=== PATIENT | female | born 1980 | race Hispanic/Latino ===

== ENCOUNTER 2021-06-10 20:37 | Inpatient (IN) | payer SELFPAY ==
--- NOTE | 2021-06-10 21:36 | RAD REPORT ---
EXAM DESCRIPTION: CT - Ct Stroke Brain Wo Cont - 06/10/2021 9:27 pm CLINICAL HISTORY: Left-sided numbness COMPARISON: none TECHNIQUE: Computed axial tomography of the head was obtained. All CT scans are performed using dose optimization technique as appropriate and may include automated exposure control or mA/KV adjustment according to patient size. FINDINGS: An intracranial bleed is not seen . The ventricles are normal in caliber. No extra-axial fluid collection is noted. Fluid within the sinuses/ mastoids is not seen. IMPRESSION: No acute intracranial abnormality is seen. If patient's symptoms persist MRI of the bra in would be recommended. Dr Shaw the emergency room was notified at 9:30 p.m. June 10, 2021
[2021-06-10 21:40] LABS: Absolute Lymphocytes (CBC) 2.8 K/uL (0.7-4.9); Basophils % 0.9 % (0-1.3); Hematocrit 34.8 % (36.0-45.0); Lymphocytes % 28.5 % (15.3-44.8); MPV 9.1 fL (7.6-11.3); RBC Red Blood Cell Count 4.64 M/uL (3.86-4.86)
[2021-06-10 21:47] LABS: Protime INR 0.96
[2021-06-10] MEDS ORDERED: NA CHLORIDE 0.9% 100 ML ONE (21:54)
[2021-06-10 22:08] LABS: ALT/SGPT 34 U/L (12-78); AST/SGOT 24 U/L (15-37); Albumin 3.8 g/dL (3.4-5.0); Alkaline Phosphatase 133 U/L (45-117); BUN Blood Urea Nitrogen 14 mg/dL (7-18); Bicarbonate 27 mmol/L (21-32); Bilirubin Direct < 0.1 mg/dL (0-0.2); Bilirubin Total 0.3 mg/dL (0.2-1.0); Glucose Level 107 mg/dL (74-106); Magnesium 2.4 mg/dL (1.8-2.4); Potassium 3.6 mmol/L (3.5-5.1); Protein, Total 8.8 g/dL (6.4-8.2); Sodium Level 140 mmol/L (136-145); Troponin (Emerg Dept Use Only) < 0.02 ng/mL (0.0-0.045)
--- NOTE | 2021-06-10 23:55 | P.HP ---
Certification for Inpatient Patient admitted to: Observation With expected LOS: <2 Midnights Patient will require the following post-hospital care: None Practitioner: I am a practitioner with admitting privileges, knowledge of patient current condition, hospital course, and medical plan of care. Services: Services provided to patient in accordance with Admission requirements found in Title 42 Section 412.3 of the Code of Federal Regulations Patient History Date of Service: 06/10/21 Reason for admission: hypertensive emergency History of Present Illness: Ms. Escobedo is a 41 yo F with HTN who presents with paresthesias over the right sided of her face, arm and leg beginning today at 8:30 pm. Denies weakness, pain, speech changes. She says this last occurred 3 days ago, but lasted for less than a minute. Upon arrival her blood pressure is 186/91. Her blood pressure has been elevated since her last . She was started on lisinopril/HCTZ 2 weeks ago. Allergies No Known Allergies Allergy (Verified 10/08/15 09:54) Home Medications: Codeine/APAP [Tylenol W/Codeine #3 tab] 1 tab PO Q8HP PRN #20 tab 10/08/15 Levofloxacin [Levaquin] 500 mg PO DAILY #5 tablet 10/08/15 - Past Medical/Surgical History -: HTN Past Surgical History: Patient denies surgical history - Family History Father -: Heart disease, Stroke - Social History Smoking Status: Never smoker Alcohol use: No CD- Drugs: No Caffeine use: Yes Place of Residence: Home Review of Systems 10-point ROS is otherwise unremarkable General: Unremarkable Eyes: Unremarkable ENT: Unremarkable Respiratory: Unremarkable Cardiovascular: Unremarkable Gastrointestinal: Unremarkable Genitourinary: Unremarkable Musculoskeletal: Unremarkable Integumentary: Unremarkable Neurological: Numbness Lymphatics: Unremarkable Physical Examination - Physical Exam General: Alert, In no apparent distress HEENT: Atraumatic, PERRLA, Mucous membr. moist/pink, EOMI, Sclerae nonicteric Neck: Supple, 2+ carotid pulse no bruit, No LAD, Without JVD or thyroid abnormality Respiratory: Clear to auscultation bilaterally, Normal air movement Cardiovascular: Regular rate/rhythm, Normal S1 S2 Gastrointestinal: Normal bowel sounds, No tenderness Musculoskeletal: No tenderness Integumentary: No rashes Neurological: Normal speech, Normal strength at 5/5 x4 extr, Normal tone, Cranial nerves 3-12 intact, Normal affect, Abnormal sensation Lymphatics: No axilla or inguinal lymphadenopathy - Studies Laboratory Data (last 24 hrs) 06/10/21 21:25: PT 11.0, INR 0.96, APTT 34.7 06/10/21 21:25: WBC 10.00, Hgb 11.0 L, Hct 34.8 L, Plt Count 265 06/10/21 21:25: Sodium 140, Potassium 3.6, BUN 14, Creatinine 0.73, Glucose 107 H, Magnesium 2.4, Total Bilirubin 0.3, AST 24, ALT 34, Alkaline Phosphatase 133 H Assessment and Plan - Problems (Diagnosis) (1) Paresthesias Current Visit: Yes Status: Acute (2) Hypertensive emergency Current Visit: Yes Status: Acute - Plan continue IV hydralazine for BP spikes reconcile and continue home medications anemia workup pending daily ASA repeat troponin in the AM monitor for improvement in paresthesias DVT ppx Discharge Plan: Home Plan to discharge in: 24 Hours - Advance Directives Does patient have a Living Will: No Does patient have a Durable POA for Healthcare: No - Code Status/Comfort Care Code Status Assessed: Yes (full code ) Critical Care: No Time Spent Managing Pts Care (In Minutes): 70
--- NOTE | 2021-06-10 23:56 | EDPHYS ---
Physician Documentation [facility] Name: Priscilla Escobedo Age: 41 yrs Sex: Female : 1980 Arrival Date: 06/10/2021 Time: 20:40 Bed 20 Private MD: ED Physician Rafael Ball HPI: 06/10 21:35 This 41 yrs old Female presents to ER via Wheelchair with complaints of mh7 Numbness, left side of body. 21:35 The patient's problem is reported as paresthesias, in right upper extremity, in right mh7 lower extremity, in right side of face. Onset: The symptoms/episode began/occurred 3 day(s) ago, and became persistent today, 20:30. Duration: The episodes are intermittent. Context: the episode(s) was witnessed, by no one, symptoms became apparent at 20:30. Had episode 3 days ago, Possible contributing factors include: None. The symptoms are alleviated by nothing. The symptoms are aggravated by nothing. Associated signs and symptoms: Pertinent positives: chest pain, palpitations, Pertinent negatives: abdominal pain, agitation, ataxia, blurred vision, combativeness, confusion, diaphoresis, diarrhea, dizziness, headache, lightheadedness, nausea, seizure, shortness of breath, vertigo, vomiting, weakness. Severity of symptoms: At their worst the symptoms were moderate today, in the emergency department the symptoms have improved moderately. Patient's baseline: Neuro: alert and fully oriented, Motor: no deficits, Ambulation: walks without assistance, Speech: normal. Historical: - Allergies: 21:20 No Known Allergies; vg1 - Immunization history:: Client reports receiving the 2nd dose of the Covid vaccine. - Social history:: Smoking status: Patient denies any tobacco usage or history of. ROS: 21:35 Constitutional: Negative for fever, chills, and weight loss, Eyes: Negative for injury, mh7 pain, redness, and discharge, ENT: Negative for injury, pain, and discharge, Neck: Negative for injury, pain, and swelling, Respiratory: Negative for shortness of breath, cough, wheezing, and pleuritic chest pain, Abdomen/GI: Negative for abdominal pain, nausea, vomiting, diarrhea, and constipation, Back: Negative for injury and pain, : Negative for injury, bleeding, discharge, and swelling, MS/Extremity: Negative for injury and deformity, Skin: Negative for injury, rash, and discoloration, Psych: Negative for depression, anxiety, suicide ideation, homicidal ideation, and hallucinations, Allergy/Immunology: Negative for hives, rash, and allergies, Endocrine: Negative for neck swelling, polydipsia, polyuria, polyphagia, and marked weight changes, Hematologic/Lymphatic: Negative for swollen nodes, abnormal bleeding, and unusual bruising. Exam: 21:35 Radiologist reports: No acute findings [facility] 21:35 Constitutional: This is a well developed, well nourished patient who is awake, alert, and in no acute distress. Head/Face: Normocephalic, atraumatic. Eyes: Pupils equal round and reactive to light, extra-ocular motions intact. Lids and lashes normal. Conjunctiva and sclera are non-icteric and not injected. Cornea within normal limits. Periorbital areas with no swelling, redness, or edema. Neck: Trachea midline, no thyromegaly or masses palpated, and no cervical lymphadenopathy. Supple, full range of motion without nuchal rigidity, or vertebral point tenderness. No Meningismus. Chest/axilla: Normal chest wall appearance and motion. Nontender with no deformity. No lesions are appreciated. Cardiovascular: Regular rate and rhythm with a normal S1 and S2. No gallops, murmurs, or rubs. Normal PMI, no JVD. No pulse deficits. Respiratory: Lungs have equal breath sounds bilaterally, clear to auscultation and percussion. No rales, rhonchi or wheezes noted. No increased work of breathing, no retractions or nasal flaring. Abdomen/GI: Soft, non-tender, with normal bowel sounds. No distension or tympany. No guarding or rebound. No evidence of tenderness throughout. Back: No spinal tenderness. No costovertebral tenderness. Full range of motion. Skin: Warm, dry with normal turgor. Normal color with no rashes, no lesions, and no evidence of cellulitis. MS/ Extremity: Pulses equal, no cyanosis. Neurovascular intact. Full, normal range of motion. Neuro: Awake and alert, GCS 15, oriented to person, place, time, and situation. Cranial nerves II-XII grossly intact. Motor strength 5/5 in all extremities. Sensory grossly intact. Cerebellar exam normal. Normal gait. Psych: Awake, alert, with orientation to person, place and time. Behavior, mood, and affect are within normal limits. Vital Signs: 21:07 BP 242 / 115; Pulse 89; Resp 16; Temp 98.0; Pulse Ox 99% ; Weight 90.72 kg; Height 5 vg1 ft. 1 in. (154.94 cm); Pain 0/10; 21:07 Body Mass Index 37.79 (90.72 kg, 154.94 cm) vg1 NIH Stroke Scale Scores: 21:35 NIHSS Score: 0 [facility] MDM: 23:53 Differential diagnosis: CVA, TIA, metabolic disorder, drug effects. Data reviewed: [facility] vital signs, nurses notes, lab test result(s), cardiac enzymes, CBC, electrolytes, EKG, radiologic studies, CT scan, plain films. Data interpreted: Pulse oximetry: on room air is 99 %. Interpretation: normal. Counseling: I had a detailed discussion with the patient and/or guardian regarding: the historical points, exam findings, and any diagnostic results supporting the discharge/admit diagnosis, the presence of at least one elevated blood pressure reading (>120/80) during this emergency department visit, lab results, radiology results, the need for further work-up and treatment in the hospital. Response to treatment: the patient's symptoms have markedly improved after treatment. 23:55 Patient medically screened. [facility] 06/10 21:24 Order name: Basic Metabolic Panel; Complete Time: 22:42 [facility] 06/10 21:24 Order name: CBC with Diff; Complete Time: 22:42 [facility] 06/10 21:24 Order name: Hepatic Function; Complete Time: 22:42 [facility] 06/10 21:24 Order name: Magnesium; Complete Time: 22:42 [facility] 06/10 21:24 Order name: Protime (+inr); Complete Time: 22:42 [facility] 06/10 21:24 Order name: Ptt, Activated; Complete Time: 22:42 [facility] 06/10 21:24 Order name: Troponin (emerg Dept Use Only); Complete Time: 22:42 [facility] 06/10 21:24 Order name: UDS [facility] 06/10 21:46 Order name: Glucose, Ancillary Testing; Complete Time: 22:42 [facility] 06/11 00:07 Order name: COVID-19 SARS RT PCR (Document "Date of Onset" if Symptomatic) lp1 06/11 01:49 Order name: SARS-COV-2 RT PCR [facility] 06/11 06:55 Order name: CBC with Automated Diff [facility] 06/11 07:23 Order name: Comprehensive Metabolic Panel [facility] 06/11 07:23 Order name: Phosphorus [facility] 06/10 21:24 Order name: CT Stroke Brain w/o Contrast; Complete Time: 22:42 [facility] 06/10 21:24 Order name: Stroke CXR 1 View [facility] 06/10 21:24 Order name: EKG; Complete Time: 21:24 [facility] 06/10 21:24 Order name: Accucheck; Complete Time: 21:36 [facility] 06/10 21:24 Order name: Cardiac monitoring; Complete Time: 21:31 [facility] 06/10 21:24 Order name: EKG - Nurse/Tech; Complete Time: 21:31 [facility] 06/10 21:24 Order name: IV Saline Lock; Complete Time: 21:36 [facility] 06/10 21:24 Order name: Labs collected and sent; Complete Time: 21:36 [facility] 06/10 21:24 Order name: NPO; Complete Time: 21:36 [facility] 06/11 07:23 Order name: Troponin I [facility] 06/11 07:23 Order name: Lipid Profile [facility] 06/11 07:23 Order name: T4 Free [facility] 06/11 07:23 Order name: Magnesium [facility] 06/11 07:23 Order name: Thyroid Stimulating Hormone [facility] 06/11 07:23 Order name: Transferrin Sat/Iron Binding [facility] 06/11 07:23 Order name: Ferritin [facility] 06/10 21:24 Order name: O2 Per Protocol; Complete Time: 21:36 [facility] 06/10 21:24 Order name: O2 Sat Monitoring; Complete Time: 21:36 [facility] 06/10 21:24 Order name: Stroke Swallow Screen; Complete Time: 21:36 [facility] 06/10 21:24 Order name: Urine Dipstick-Ancillary (obtain specimen) [facility] 06/10 21:24 Order name: Urine Test (obtain specimen) [facility] Administered Medications: No medications were administered Disposition Summary: 06/10/21 23:55 Hospitalization Ordered Hospitalization Status: Inpatient Admission [facility] Provider: Pablo Hodgson Anuradha Condition: Stable [facility] Problem: new [facility] Symptoms: have improved mh7 Bed/Room Type: Standard [facility] Location: Telemetry/MedSurg (Inpatient)(06/11/21 07:53) Room Assignment: 221(06/11/21 07:53) Diagnosis - Hypertensive Urgency mh7 - Paresthesia [facility] Forms: - Medication Reconciliation Form 7 - SBAR form [facility] NIH Stroke Scale - NIH Stroke Score Date: 06/10/2021 Time: 21:35 Total Score = 0 1a. Level of Consciousness (LOC) - 0(Alert) 1b. Level of Consciousness (LOC) (Month \\T\\ Age) - 0(Both) 1c. LOC Commands (Open \\T\\ Closes Eyes/Bee Farmer) - 0(Both) 2. Best Gaze (Lateral Gaze Paresis) - 0(Normal) 3. Visual Field Loss - 0(No visual loss) 4. Facial Palsy - 0(Normal) 5a. Left Arm: Motor (10-second hold) - 0(No drift) 5b. Right Arm: Motor (10-second hold) - 0(No drift) 6a. Left Leg: Motor (5-second hold - always test supine) - 0(No drift) 6b. Right Leg: Motor (5-second hold - always test supine) - 0(No drift) 7. Limb Ataxia (finger/nose \\T\\ heel/suarez - test with eyes open) - 0(Absent) 8. Sensory Loss (pinprick arms/legs/face) - 0(Normal) 9. Best Language: Aphasia (description/naming/reading) - 0(No aphasia) 10. Dysarthria (speech clarity - read or repeat words) - 0(Normal) 11. Extinction and Inattention (visual/tactile/auditory/spatial/personal) - 0(No abnormality) Initials: [facility] Signatures: Dispatcher [employer] Nivia Uribe RN RN dw Kelli Patterson RN RN eb1 Codi Smith RN RN vg1 Rafael Ball MD MD [facility] Corrections: (The following items were deleted from the chart) 06/11 01:00 06/10 23:55 Telemetry/MedSurg (Inpatient) [facility] eb1 06/11 01:00 06/10 23:55 [place] [id number] 06/11 07:53 01:00 [facility] ER HOLD eb1 dw 07:53 01:00 ERHOLD- eb1 dw
--- NOTE | 2021-06-10 23:56 | ER ---
Nurse's Notes [facility] Name: Priscilla Escobedo Age: 41 yrs Sex: Female : 1980 Arrival Date: 06/10/2021 Time: 20:40 Bed 20 Private MD: Diagnosis: Hypertensive Urgency;Paresthesia Presentation: 06/10 21:07 Chief complaint: Patient states: About 45 minutes ago pt left side began to feel numb. vg1 States it feels tingling. Denies any injury, headache, or NV. States s/s also happened about 3 days ago as well. Coronavirus screen: Vaccine status: Patient reports receiving the 2nd dose of the covid vaccine. Client denies travel out of the [place] in the last 14 days. Ebola Screen: Patient negative for fever greater than or equal to 101.5 degrees Fahrenheit, and additional compatible Ebola Virus Disease symptoms. 21:07 Method Of Arrival: Wheelchair vg1 21:19 Initial Sepsis Screen: Does the patient meet any 2 criteria?. Risk Assessment: Do you vg1 want to hurt yourself or someone else? Patient reports no desire to harm self or others. Onset of symptoms was June 10, 2021. 21:19 Acuity: CRISSY 2 vg1 Triage Assessment: 21:21 General: Appears in no apparent distress. comfortable, Behavior is calm, cooperative. vg1 Pain: Denies pain. Neuro: Level of Consciousness is awake, alert, obeys commands, Oriented to person, place, time, situation, Clinical Research Administrator are equal bilaterally Moves all extremities. Gait is steady, Speech is normal, Facial symmetry appears normal. Historical: - Allergies: 21:20 No Known Allergies; vg1 - Immunization history:: Client reports receiving the 2nd dose of the Covid vaccine. - Social history:: Smoking status: Patient denies any tobacco usage or history of. Vital Signs: 21:07 BP 242 / 115; Pulse 89; Resp 16; Temp 98.0; Pulse Ox 99% ; Weight 90.72 kg; Height 5 vg1 ft. 1 in. (154.94 cm); Pain 0/10; 21:07 Body Mass Index 37.79 (90.72 kg, 154.94 cm) vg1 NIH Stroke Scale Scores: 21:35 NIHSS Score: 0 mh7 ED Course: 20:40 Patient arrived in ED. es 21:20 Triage completed. vg1 21:21 Rafael Ball MD is Attending Physician. mh7 21:21 Arm band placed on. vg1 21:22 Francisco Knight, RN is Primary Nurse. mr2 21:27 CT Stroke Brain w/o Contrast In Process Unspecified. EDMS 21:36 Basic Metabolic Panel Sent. mr2 21:36 CBC with Diff Sent. mr2 21:36 Magnesium Sent. mr2 21:36 Hepatic Function Sent. mr2 21:36 Protime (+inr) Sent. mr2 21:36 Ptt, Activated Sent. mr2 21:36 Troponin (emerg Dept Use Only) Sent. mr2 22:11 Stroke CXR 1 View In Process Unspecified. EDMS 23:54 Pablo Hodgson is Hospitalizing Provider. [facility] Administered Medications: No medications were administered Outcome: 23:55 Decision to Hospitalize by Provider. [facility] 12 08:43 Admitted to Tele accompanied by nurse, via wheelchair, room 221, on monitor, Report jh6 called to tavo Condition: good 09:00 Patient left the ED. ss NIH Stroke Scale - NIH Stroke Score Date: 06/10/2021 Time: 21:35 Total Score = 0 1a. Level of Consciousness (LOC) - 0(Alert) 1b. Level of Consciousness (LOC) (Month \T\ Age) - 0(Both) 1c. LOC Commands (Open \T\ Closes Eyes/Technology Sales Representative) - 0(Both) 2. Best Gaze (Lateral Gaze Paresis) - 0(Normal) 3. Visual Field Loss - 0(No visual loss) 4. Facial Palsy - 0(Normal) 5a. Left Arm: Motor (10-second hold) - 0(No drift) 5b. Right Arm: Motor (10-second hold) - 0(No drift) 6a. Left Leg: Motor (5-second hold - always test supine) - 0(No drift) 6b. Right Leg: Motor (5-second hold - always test supine) - 0(No drift) 7. Limb Ataxia (finger/nose \T\ heel/suarez - test with eyes open) - 0(Absent) 8. Sensory Loss (pinprick arms/legs/face) - 0(Normal) 9. Best Language: Aphasia (description/naming/reading) - 0(No aphasia) 10. Dysarthria (speech clarity - read or repeat words) - 0(Normal) 11. Extinction and Inattention (visual/tactile/auditory/spatial/personal) - 0(No abnormality) Initials: 7 Signatures: Dispatcher [employer] Mansi lA Shelby RN RN ss Codi Smith RN RN vg1 Rafael Ball MD MD 7 Francisco Knight RN RN mr2 Brenda Chand RN RN 6 Corrections: (The following items were deleted from the chart) 06/10 21:20 21:07 Chief complaint: Patient states: About 45 minutes ago pt left side began vg1 to feel numb. States it feels tingling. Denies any injury, headache, or NV vg1
[2021-06-11 00:46] VITALS: BMI 37.7
[2021-06-11] MEDS ORDERED: ONDANSETRON 4 MG/2 ML VIAL IV PRN (00:54)
[2021-06-11] MEDS ORDERED: NA CHLORIDE 0.9% 1,000 ML ONE (01:41)
[2021-06-11] MEDS ORDERED: POTASSIUM CL SA 10 MEQ TAB PO ONE (01:45)
[2021-06-11] MEDS ORDERED: HYDRALAZINE HCL 20 MG/ML VIAL ONE ×2 (01:45→08:12)
[2021-06-11] MEDS: HYDRALAZINE HCL 20 MG/ML VIAL IV PRN ×4 (01:51→18:18)
[2021-06-11 06:54] LABS: Absolute Lymphocytes (CBC) 2.7 K/uL (0.7-4.9); Basophils % 1.2 % (0-1.3); Hematocrit 33.2 % (36.0-45.0); Lymphocytes % 29.1 % (15.3-44.8); MPV 8.9 fL (7.6-11.3); RBC Red Blood Cell Count 4.48 M/uL (3.86-4.86)
[2021-06-11 07:14] LABS: ALT/SGPT 22 U/L (12-78); AST/SGOT 18 U/L (15-37); Albumin 3.2 g/dL (3.4-5.0); Alkaline Phosphatase 119 U/L (45-117); BUN Blood Urea Nitrogen 11 mg/dL (7-18); Bicarbonate 27 mmol/L (21-32); Bilirubin Total 0.3 mg/dL (0.2-1.0); Ferritin 8.5 ng/mL (8-388); Glucose Level 108 mg/dL (74-106); HDL Cholesterol 48 mg/dL (40-60); LDL Cholesterol, Calculated 115 (<130); Magnesium 2.3 mg/dL (1.8-2.4); Phosphorus 2.7 mg/dL (2.5-4.9); Potassium 3.8 mmol/L (3.5-5.1); Protein, Total 7.6 g/dL (6.4-8.2); Sodium Level 142 mmol/L (136-145); Transferrin 271 mg/dL (200-360); Troponin I < 0.02 ng/mL (0.0-0.045)
[2021-06-11 07:32] LABS: Barbiturates NEGATIVE (NEGATIVE); Benzodiazepines NEGATIVE (NEGATIVE); Cocaine NEGATIVE (NEGATIVE); METHAMPHETAM NEGATIVE (NEGATIVE); Methadone NEGATIVE (NEGATIVE); Opiates NEGATIVE (NEGATIVE); THC Cannibis NEGATIVE (NEGATIVE)
--- NOTE | 2021-06-11 08:10 | RAD REPORT ---
EXAM DESCRIPTION: RAD - Chest Single View - 06/10/2021 10:11 pm CLINICAL HISTORY: hypertensive COMPARISON: October 2015 TECHNIQUE: AP portable chest image was obtained 06/10/2021 10:11 pm . FINDINGS: No peripheral mass or consolidation. Lung volumes are low. Heart, vasculature and lung mar kings are accentuated by body habitus affects and portable technique. No significant failure or volum e overload seen. Heart and vasculature are normal. No measurable pleural effusion and no pneumothorax . No acute bony abnormality seen. No acute aortic findings suspected. IMPRESSION: No acute cardiopulmonary process. No significant change from comparison study.
[2021-06-11] MEDS ORDERED: ASPIRIN 81 MG CHEWABLE TABLET ONE (08:12)
[2021-06-11] MEDS ORDERED: ACETAMINOPHEN 500 MG TAB ONE (08:12)
[2021-06-11] MEDS ORDERED: ENOXAPARIN 40 MG/0.4 ML SQ ONE (08:13)
[2021-06-11] MEDS ORDERED: lisinopriL 20 MG TAB ONE (08:13)
[2021-06-11] MEDS ORDERED: hydroCHLOROthiazide 25 MG TAB ONE (08:13)
[2021-06-11] MEDS: hydroCHLOROthiazide 25 MG TAB PO SCH (08:22)
[2021-06-11] MEDS: ASPIRIN EC 81 MG TAB PO SCH (08:22)
[2021-06-11] MEDS: lisinopriL 20 MG TAB PO SCH ×2 (08:23→19:56)
[2021-06-11] MEDS: ENOXAPARIN 40 MG/0.4 ML SQ SCH (08:23)
[2021-06-11] MEDS: ACETAMINOPHEN 500 MG TAB PO PRN ×2 (12:42→18:18)
[2021-06-11] MEDS ORDERED: AMLODIPINE 10 MG TAB PO SCH (13:13)
--- NOTE | 2021-06-11 13:24 | P.DS ---
Admission Date: 06/11/21 Discharge Date: 06/12/21 Disposition: ROUTINE DISCHARGE Discharge Condition: FAIR Reason for Admission: hypertensive emergency - Problems (1) Acute CVA (cerebrovascular accident) Current Visit: Yes Status: Acute (2) Acute renal failure Current Visit: Yes Status: Acute (3) Hypertensive emergency Current Visit: Yes Status: Acute (4) Paresthesias Current Visit: Yes Status: Acute Brief History of Present Illness: Ms. Escobedo is a 41 yo F with HTN who presents with paresthesias over the right sided of her face, arm and leg. She denied any weakness, pain, speech changes. Second episode. Patient states that the first episode occurred about 3 days prior. Blood pressure 186/91 on arrival. Her blood pressure has been elevated since her last . She stated she was started on lisinopril/HCTZ 2 weeks ago. Patient admitted for malignant hypertension. Hospital Course: Patient admitted to the medical floor for monitor. His symptoms improved and now has paresthesia only on her right fingertips. Amlodipine was added to her home antihypertensives which included lisinopril and hydrochlorothiazide. Blood pressure readings improved. Noted head CT unremarkable, no acute changes. Patient with significant risk factors for stroke. MRI of the brain done showed right acute lacunar infarct in the basal ganglia. She is started on aspirin, Plavix and folic acid. She is also placed on Lipitor for hypercholesterolemia. I discussed permissive hypertension for the next 1 week with her. Patient and significant other desires request to go home today. She is discharged to follow-up with Dr. Meyer as an outpatient. She is also referred to a relationship assoc to monitor her renal function. Vital Signs/Physical Exam: Temp Pulse Resp BP Pulse Ox 96.7 F L 85 18 185/95 H 97 06/11/21 08:00 06/11/21 08:23 06/11/21 08:00 06/11/21 08:23 06/11/21 08:00 General: Alert, In no apparent distress, Oriented x3 HEENT: PERRLA, Mucous membr. moist/pink, Sclerae nonicteric Neck: Supple, JVD not distended Respiratory: Clear to auscultation bilaterally, Normal air movement Cardiovascular: No edema, Regular rate/rhythm, Normal S1 S2, No murmurs Gastrointestinal: Normal bowel sounds, Soft and benign, Non-distended, No tenderness Musculoskeletal: No swelling, No tenderness Integumentary: No rashes, No erythema Neurological: Normal gait, Normal speech, Normal strength at 5/5 x4 extr, Cranial nerves 3-12 intact Laboratory Data at Discharge: WBC 9.40 K/uL (4.3-10.9) 06/11/21 06:15 Hgb 10.7 g/dL (12.0-15.0) L 06/11/21 06:15 Hct 33.2 % (36.0-45.0) L 06/11/21 06:15 Plt Count 259 K/uL (152-406) 06/11/21 06:15 PT 11.0 SECONDS (9.5-12.5) 06/10/21 21:25 INR 0.96 06/10/21 21:25 APTT 34.7 SECONDS (24.3-36.9) 06/10/21 21:25 Sodium 142 mmol/L (136-145) 06/11/21 06:15 Potassium 3.8 mmol/L (3.5-5.1) 06/11/21 06:15 BUN 11 mg/dL (7-18) 06/11/21 06:15 Creatinine 0.50 mg/dL (0.55-1.3) L 06/11/21 06:15 Glucose 108 mg/dL (74-106) H 06/11/21 06:15 Phosphorus 2.7 mg/dL (2.5-4.9) 06/11/21 06:15 Magnesium 2.3 mg/dL (1.8-2.4) 06/11/21 06:15 Total Bilirubin 0.3 mg/dL (0.2-1.0) 06/11/21 06:15 AST 18 U/L (15-37) 06/11/21 06:15 ALT 22 U/L (12-78) 06/11/21 06:15 Alkaline Phosphatase 119 U/L (45-117) H 06/11/21 06:15 Troponin I < 0.02 ng/mL (0.0-0.045) 06/11/21 06:15 Triglycerides 188 mg/dL (<150) H 06/11/21 06:15 Cholesterol 201 mg/dL (<200) H 06/11/21 06:15 HDL Cholesterol 48 mg/dL (40-60) 06/11/21 06:15 Cholesterol/HDL Ratio 4.19 06/11/21 06:15 Home Medications: Levothyroxine Sodium [Euthyrox] 25 mcg PO DAILY #30 06/11/21 Aspirin [Aspirin EC] 81 mg PO DAILY #30 tablet. 06/12/21 Atorvastatin Calcium [Lipitor] 40 mg PO BEDTIME #30 tab 06/12/21 Clopidogrel Bisulfate [Plavix*] 75 mg PO DAILY #30 tablet 06/12/21 lisinopriL [Lisinopril] 20 mg PO DAILY #30 tablet 06/12/21 New Medications: Aspirin [Aspirin EC] 81 mg PO DAILY #30 tablet. Levothyroxine Sodium [Euthyrox] 25 mcg PO DAILY #30 Atorvastatin Calcium [Lipitor] 40 mg PO BEDTIME #30 tab lisinopriL [Lisinopril] 20 mg PO DAILY #30 tablet Clopidogrel Bisulfate [Plavix*] 75 mg PO DAILY #30 tablet Physician Discharge Instructions: Do not take your old blood pressure medication for the next 1 week. Check your blood pressure every morning Take lisinopril as needed for systolic blood pressure greater than 160 for the next 1 week for a target systolic blood pressure of 140. Because you had a stroke your blood pressures do not fall below 140 for the next 1 week. Take aspirin and Plavix for the next 1 month and then stop Plavix and continue aspirin indefinitely. Followup: NONE,NONE [Primary Care Provider] - Alban Meyer MD [ASSOCIATE-ACTIVE - CAN ADMIT] - 1 Week Time spent managing pt's care (in minutes): 38
[2021-06-11] MEDS ORDERED: TRAMADOL HCL 50 MG TAB PO PRN (13:25)
[2021-06-11] MEDS: AMLODIPINE 10 MG TAB PO SCH (15:25)
--- NOTE | 2021-06-11 18:53 | P.PN ---
Subjective Date of Service: 06/11/21 Chief Complaint: hypertensive emergency Patient reports significant improvement in the right-sided and right facial paresthesia. Patient report paresthesia only in her right fingertips. Blood pressure still remain elevated, systolic ranging from 160s to 180s. Patient complaining of headache. No visual disturbance.. Physical Examination - Vital Signs Temperature: 97.4 F Blood Pressure: 159/71 Pulse: 88 Respirations: 16 Pulse Ox (%): 97 - Physical Exam General: Alert, In no apparent distress, Oriented x3 HEENT: Mucous membr. moist/pink Neck: Supple, JVD not distended Respiratory: Clear to auscultation bilaterally, Normal air movement Cardiovascular: No edema, Regular rate/rhythm, Normal S1 S2 Gastrointestinal: Normal bowel sounds, Soft and benign, Non-distended, No tenderness Musculoskeletal: No swelling, No tenderness Integumentary: No rashes, No erythema Neurological: Normal gait, Normal speech, Normal strength at 5/5 x4 extr, Cranial nerves 3-12 intact - Studies Laboratory Data (last 24 hrs) 06/11/21 06:15: Sodium 142, Potassium 3.8, BUN 11, Creatinine 0.50 L, Glucose 108 H, Phosphorus 2.7, Magnesium 2.3, Total Bilirubin 0.3, AST 18, ALT 22, Alkaline Phosphatase 119 H, Troponin I < 0.02, Triglycerides 188 H, Cholesterol 201 H, HDL Cholesterol 48, Cholesterol/HDL Ratio 4.19 06/11/21 06:15: WBC 9.40, Hgb 10.7 L, Hct 33.2 L, Plt Count 259 06/10/21 21:25: PT 11.0, INR 0.96, APTT 34.7 06/10/21 21:25: WBC 10.00, Hgb 11.0 L, Hct 34.8 L, Plt Count 265 06/10/21 21:25: Sodium 140, Potassium 3.6, BUN 14, Creatinine 0.73, Glucose 107 H, Magnesium 2.4, Total Bilirubin 0.3, AST 24, ALT 34, Alkaline Phosphatase 133 H Assessment And Plan - Current Problems (Diagnosis) (1) Hypertensive emergency Current Visit: Yes Status: Acute (2) Paresthesias Current Visit: Yes Status: Acute - Plan Continue patient's home antihypertensives. Added amlodipine for better blood pressure control. Neurology symptoms almost resolved. Paresthesia secondary to hypertensive emergency versus TIA. Patient started on aspirin. Also on Lipitor for hyperlipidemia. Tramadol as needed for headache. Possible discharge in a.m. once blood pressure is better controlled.
[2021-06-12] MEDS: ENOXAPARIN 40 MG/0.4 ML SQ SCH (08:04)
[2021-06-12] MEDS: ASPIRIN EC 81 MG TAB PO SCH (08:04)
[2021-06-12] MEDS: hydroCHLOROthiazide 25 MG TAB PO SCH (08:04)
[2021-06-12] MEDS: AMLODIPINE 10 MG TAB PO SCH (08:04)
[2021-06-12 08:21] LABS: Albumin 3.4 g/dL (3.4-5.0); Bilirubin Total 0.6 mg/dL (0.2-1.0); Potassium 3.3 mmol/L (3.5-5.1); Protein, Total 7.8 g/dL (6.4-8.2)
--- NOTE | 2021-06-12 17:31 | RAD REPORT ---
EXAM DESCRIPTION: MRI - Brain Wo Cont - 06/12/2021 4:38 pm CLINICAL HISTORY: Parasthesia of right upper ext COMPARISON: No comparisons TECHNIQUE: Sagittal T1-weighted images were obtained along with PD/heavily T2-weighted and T2-FLAIR images. Axial DWI and ADC mapping sequences were also obtained along with coronal heavily T2-weighted images were obtained. FINDINGS: Restricted diffusion is present in the right basal ganglia/ baez radiata. The infarct is small. No acute intracranial hemorrhage. There is no edema or shift of midline structures. No extra- axial fluid collections. Signal voids are seen as a normal finding in the major intracranial vessels. No significant white matter disease. Mastoid air cells and paranasal sinuses are clear. IMPRESSION: Acute right basal ganglia/baez radiata lacunar infarct.
[2021-06-12] MEDS ORDERED: POTASSIUM 25 MEQ EFFERV TAB PO ONE (19:27)
--- NOTE | 2021-06-12 19:52 | P.PN ---
Subjective Date of Service: 06/12/21 Chief Complaint: hypertensive emergency Patient states her right-sided paresthesia has resolved. She is now complaining of clumsiness in the left hand. Blood pressure readings have improved. She states her headache has resolved. No visual disturbance. Physical Examination - Vital Signs Temperature: 97.7 F Blood Pressure: 142/74 Pulse: 71 Respirations: 14 Pulse Ox (%): 95 - Physical Exam General: Alert, In no apparent distress, Oriented x3 HEENT: Mucous membr. moist/pink Neck: JVD not distended Respiratory: Clear to auscultation bilaterally, Normal air movement Cardiovascular: No edema, Regular rate/rhythm, Normal S1 S2, No murmurs Gastrointestinal: Normal bowel sounds, Soft and benign, Non-distended, No tenderness Integumentary: No rashes, No erythema Neurological: Normal speech, Normal strength at 5/5 x4 extr, Cranial nerves 3-12 intact Assessment And Plan - Current Problems (Diagnosis) (1) Acute CVA (cerebrovascular accident) Current Visit: Yes Status: Acute (2) Acute renal failure Current Visit: Yes Status: Acute (3) Hypertensive emergency Current Visit: Yes Status: Acute (4) Paresthesias Current Visit: Yes Status: Acute - Plan Hold antihypertensives for permissive hypertension. Hydralazine as needed for BP spikes Patient started on aspirin. Added Plavix Continue Lipitor for hyperlipidemia. Tramadol as needed for headache. IV hydration with normal saline. Nephrology consult. Monitor renal function. Neurochecks.
[2021-06-12] MEDS: ATORVASTATIN 40 MG TAB PO SCH (21:01)
[2021-06-12] MEDS: NA CHLORIDE 0.9% 1,000 ML IV SCH (21:02)
[2021-06-13 00:52] LABS: Urine Appearance CLEAR (Clear); Urine Bilirubin NEGATIVE (Negative); Urine Blood NEGATIVE (Negative); Urine Color YELLOW (Yellow); Urine Glucose NEGATIVE (Negative); Urine Protein NEGATIVE (Negative); Urine Urobilinogen 0.2 mg/dL (0.2-1.0)
[2021-06-13 01:01] LABS: Urine Bacteria <20 /HPF (<20); Urine RBC <5 /HPF (NONE SEEN); Urine Urothelial Cells <5 /HPF (NONE SEEN)
[2021-06-13] MEDS: NA CHLORIDE 0.9% 1,000 ML IV SCH (05:02)
--- NOTE | 2021-06-13 06:23 | P.PN ---
Date of Service: 06/13/21 Subjective: No acute events overnight. Patient reports improvement of her paresthesias (resolution) No longer feeling some clumsiness in her left hand either. She is feeling back to her normal self. No new complaints ROS: 10 point ROS as noted above, otherwise negative Physical exam GEN: Alert, orientedx3, NAD HEENT: Normal conjunctiva, sclera anicteric CV: Regular rate and rhythm, no edema Pulm: Nonlabored respiration on room air ABD: Soft, nontender, nondistended MSK: No joint tenderness Integumentary: No rashes Neuro: Normal speech, normal affect, str 5/5 bilaterally in upper/lower extremities Problem List Acute CVA (right basal ganglia) Acute renal failure, prerenal Hypertensive emergency Paresthesias Restart antihypertensives. Patient with blood pressure greater than 200 systolic Want to allow for some permissive hypertension to avoid further risk of worsening/new stroke Continue aspirin, continue addition of Plavix Continue Lipitor DC IV fluids Nephrology consulted, renal function improved overnight with IV fluids Patient is young and hypertensive, history of preeclampsia, did not follow-up Reports no significant work-up for hypertension We will obtain MRA to rule out renal artery stenosis, check several blood tests to evaluate for cause of HTN Dispo: Anticipate discharge home in the next 24 hours Time Spent Managing Pts Care (In Minutes): 35
[2021-06-13 06:46] LABS: Albumin 3.3 g/dL (3.4-5.0); Phosphorus 3.4 mg/dL (2.5-4.9); Potassium 4.1 mmol/L (3.5-5.1)
--- NOTE | 2021-06-13 08:30 | RAD REPORT ---
EXAM DESCRIPTION: US - Renal Ultrasound-Complete - 06/13/2021 1:37 am CLINICAL HISTORY: syed COMPARISON: Abdomen Exam Limited dated 10/08/2015 FINDINGS: Increased renal cortical echogenicity of the kidneys bilaterally. The right kidney measures 10.5 cm. No hydronephrosis, focal mass or perinephric fluid. The left kidney measures 9.6 cm. No hydronephrosis, focal mass or perinephric fluid. The urinary bladder is incompletely distended without gross abnormality seen. IMPRESSION: Increased renal cortical echogenicity suggesting medical renal disease. No hydronephrosi s.
[2021-06-13] MEDS ORDERED: CLOPIDOGREL 75 MG TABLET PO SCH (09:00)
[2021-06-13] MEDS: ASPIRIN EC 81 MG TAB PO SCH (09:16)
[2021-06-13] MEDS: ENOXAPARIN 40 MG/0.4 ML SQ SCH (09:16)
--- NOTE | 2021-06-13 11:53 | RAD REPORT ---
EXAM DESCRIPTION: MRI - MRA Abdomen W/Cont - 06/13/2021 11:43 am CLINICAL HISTORY: eval for renal artery stenosis COMPARISON: Renal Ultrasound-Complete dated 06/13/2021; Abdomen Exam Limited dated 10/08/2015 FINDINGS: Multisequence MRA of the abdomen obtained up with without contrast. The renal arteries are widely patent bilaterally. Single renal arteries are noted. The remaining donte r aortic branch vessels are widely patent. The abdominal aorta is widely patent. IMPRESSION: No renal artery stenosis.
[2021-06-13] MEDS: HYDRALAZINE HCL 20 MG/ML VIAL IV PRN (11:58)
[2021-06-13 13:57] LABS: UR PROTEIN 9.9 mg/dL (<11.9); Urine Protein/Creatinine Ratio 0.43 ratio (<0.15)
[2021-06-13] MEDS ORDERED: carvediloL 12.5 MG TAB PO ONE (14:00)
[2021-06-13] MEDS ORDERED: LABETALOL 20 MG/4ML SYRINGE IV ONE (14:00)
[2021-06-13] MEDS ORDERED: SPIRONOLACTONE 25 MG TABLET PO SCH (14:00)
[2021-06-13] MEDS: HYDRALAZINE HCL 25 MG TABLET PO SCH ×2 (16:10→21:35)
--- NOTE | 2021-06-13 17:27 | CON ---
Reason For Consultation: High blood pressure, elevated BUN and creatinine. History Of Present Illness: This is a pleasant unfortunate 41-year-old female with significant past medical history of hypertension, was diagnosed in her fourth , the patient had a strong positive family history. The patient was placed on JAMARI inhibitor as outpatient. After the couple of years ago, the patient started having 2 months ago elevation in blood pressure. For that reason, the patient was started on JAMARI inhibitor. The patient denied taking any nonsteroidal. No recent exposure to contrast. The patient came to the hospital complaining from headache and found to have an elevation in blood pressure 180/90, elevation in BUN and creatinine. For that reason, we have been consulted. Over the night, the patient was started on IV hydration. Kidney function has been normalized, but blood pressure still elevated. Again, no IV contrast, no nonsteroidal. Past Medical History: Includes hypertension with gestational. Home Medications: Include Levaquin, codeine, lisinopril. Allergies: NO KNOWN DRUGS ALLERGY. Past Surgical History: Negative. Family History: Positive for hypertension and CVA. Social History: Denied smoking, denied drinking, denied drugs abuse. Review of Systems: Head and Neck: Has headache. GI: No nausea. No vomiting. : No polyuria. No dysuria. No hematuria. 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 Respiratory: No shortness of breath. Cardiovascular: Has headache. No leg edema. Endocrine: No polydipsia. Skin: No rash. Physical Examination: Vital Signs: When I saw the patient; blood pressure of 153/89, pulse of 78, afebrile. Chest: Clear to auscultation. Heart: S1, S2. Regular. Abdomen: Soft, nontender, could not appreciate any organomegaly or renal bruit. Extremities: No edema. Neurologic: Alert. No focality. Laboratory Data: H and H 10.7/33.2. Upon presentation to the hospital; creatinine 1.7, GFR of 33. Today; sodium 141, potassium 4.1, bicarb 33, BUN 23, creatinine 0.9, calcium 8.9, phosphorus 3.2, albumin 3.3. Current Medications: In the hospital include atorvastatin, Tylenol, tramadol, amlodipine, lisinopril. Assessment And Plan: 1. Acute kidney injury secondary to prerenal, ultrasound showed normal size kidney 10.5 x 9.6. No disproportion in the size. No hydronephrosis. Minimal proteinuria. Recovered, resolve. I am going to go ahead and discontinue IV fluids. 2. Hypertension with the presence of hypokalemia and young age. Secondary hypertension needs to be ruled out. We will proceed with MRA and we will send for hormonal workup. The patient is going to need as outpatient echocardiogram too. I am going to go ahead and start the patient on hydralazine and switch lisinopril to beta-kristi and we will follow up the patient. With the presence of hypokalemia, I am going to start the patient on Aldactone after obtaining the lab and we will follow up. We will send for plasma renin activity, aldosterone, metanephrine and cortisol. If her blood pressure gets controlled, systolic below 160 and diastolic below 90, the patient cleared from the Renal standpoint for discharge planning. 3. Hypokalemia possible to secondary hypertension. We will start aldactone after obtaining the aldosterone level and we will follow up. We will send for urine electrolytes to calculate transtubular potassium gradient and we will follow up. 4. Cerebrovascular accident secondary to hypertension as by primary. time spend exam the patient face to face , placing order , reviewing the data of lab and radiology , discussing with the staff including nusing , discussing with other miller member including hospitalist and other vocational rehabilitation consultant 45 min COLLEEN Voice ID: [id number] Report ID: [id number] MTDD
[2021-06-13] MEDS: carvediloL 12.5 MG TAB PO SCH (17:59)
[2021-06-13] MEDS: ATORVASTATIN 40 MG TAB PO SCH (21:35)
[2021-06-13 23:08] VITALS: O2SAT 96
[2021-06-14 03:48] LABS: Albumin 3.2 g/dL (3.4-5.0); Phosphorus 3.5 mg/dL (2.5-4.9); Potassium 4.1 mmol/L (3.5-5.1)
[2021-06-14 04:00] LABS: Thyroid Stimulating Hormone 3.83 uIU/mL (0.360-3.740)
[2021-06-14] MEDS: carvediloL 12.5 MG TAB PO SCH (05:37)
[2021-06-14 05:39] VITALS: BP 152/70
[2021-06-14 06:22] VITALS: TEMP 97.7
--- NOTE | 2021-06-14 07:15 | P.DS ---
Admission Date: 06/11/21 Discharge Date: 06/14/21 Disposition: ROUTINE DISCHARGE Discharge Condition: FAIR Reason for Admission: Severe HTN, Paresthesias Consultations: Neurology - Dr. Meyer Nephrology - Dr. Reynolds Procedures: CT Brain (06/10): FINDINGS: An intracranial bleed is not seen . The ventricles are normal in caliber. No extra-axial fluid collection is noted. Fluid within the sinuses/ mastoids is not seen. IMPRESSION: No acute intracranial abnormality is seen. If patient's symptoms persist MRI of the brain would be recommended. MRI Brain (06/12): FINDINGS: Restricted diffusion is present in the right basal ganglia/ baez radiata. The infarct is small. No acute intracranial hemorrhage. There is no edema or shift of midline structures. No extra-axial fluid collections. Signal voids are seen as a normal finding in the major intracranial vessels. No significant white matter disease. Mastoid air cells and paranasal sinuses are clear. IMPRESSION: Acute right basal ganglia/baez radiata lacunar infarct. Renal U/S (06/13): FINDINGS: Increased renal cortical echogenicity of the kidneys bilaterally. The right kidney measures 10.5 cm. No hydronephrosis, focal mass or perinephric fluid. The left kidney measures 9.6 cm. No hydronephrosis, focal mass or perinephric fluid. The urinary bladder is incompletely distended without gross abnormality seen. IMPRESSION: Increased renal cortical echogenicity suggesting medical renal disease. No hydronephrosis. MRA Abd (06/13): FINDINGS: Multisequence MRA of the abdomen obtained up with without contrast. The renal arteries are widely patent bilaterally. Single renal arteries are noted. The remaining major aortic branch vessels are widely patent. The abdominal aorta is widely patent. IMPRESSION: No renal artery stenosis. Problem List Acute CVA (right basal ganglia) Acute renal failure, prerenal Uncontrolled HTN Paresthesias, resolved Brief History of Present Illness: 41 yo F with HTN who presents with paresthesias over the right sided of her face, arm and leg beginning today at 8:30 pm. Denies weakness, pain, speech changes. She says this last occurred 3 days ago, but lasted for less than a minute. Upon arrival her blood pressure is 186/91. Her blood pressure has been elevated since her last . She was started on lisinopril/HCTZ 2 weeks ago. Hospital Course: Patient was monitored on telemetry without any events. MRI was obtained and confirmed acute CVA. Her blood pressure was slowly lowered, allowing for permissive hypertension. She was noted to have an JUNI on hospital day 2. She reported minimal PO intake and renal function improved after treatment with IV fluids. Her blood pressure was better controlled after changing her medications, and she had resolution of her paresthesias. She reported minimal change /control of her blood pressure with her current regimen at home over the last 2 months. Discharged home to continue aspirin, plavix, statin, carvedilol, hydralazine. Follow up with PCP within 1 week. Follow up with Neurology in ~1 month. Vital Signs/Physical Exam: Physical exam GEN: Alert, oriented x3, NAD HEENT: Normal conjunctiva, sclera anicteric CV: Regular rate and rhythm, no edema Pulm: Nonlabored respiration on room air ABD: Soft, nontender, nondistended Neuro: Normal speech, normal affect, str 5/5 bilaterally in upper/lower extremities Temp Pulse Resp BP Pulse Ox 97.7 F 75 17 152/70 H 98 06/14/21 04:00 06/14/21 05:37 06/14/21 04:00 06/14/21 05:37 06/14/21 04:00 Laboratory Data at Discharge: WBC 9.40 K/uL (4.3-10.9) 06/11/21 06:15 Hgb 10.7 g/dL (12.0-15.0) L 06/11/21 06:15 Hct 33.2 % (36.0-45.0) L 06/11/21 06:15 Plt Count 259 K/uL (152-406) 06/11/21 06:15 PT 11.0 SECONDS (9.5-12.5) 06/10/21 21:25 INR 0.96 06/10/21 21:25 APTT 34.7 SECONDS (24.3-36.9) 06/10/21 21:25 Sodium 141 mmol/L (136-145) 06/14/21 03:11 Potassium 4.1 mmol/L (3.5-5.1) 06/14/21 03:11 BUN 19 mg/dL (7-18) H 06/14/21 03:11 Creatinine 0.83 mg/dL (0.55-1.3) 06/14/21 03:11 Glucose 110 mg/dL (74-106) H 06/14/21 03:11 Phosphorus 3.5 mg/dL (2.5-4.9) 06/14/21 03:11 Magnesium 2.3 mg/dL (1.8-2.4) 06/11/21 06:15 Total Bilirubin 0.6 mg/dL (0.2-1.0) 06/12/21 07:41 AST 11 U/L (15-37) L 06/12/21 07:41 ALT 25 U/L (12-78) 06/12/21 07:41 Alkaline Phosphatase 121 U/L (45-117) H 06/12/21 07:41 Troponin I < 0.02 ng/mL (0.0-0.045) 06/14/21 03:11 Triglycerides 188 mg/dL (<150) H 06/11/21 06:15 Cholesterol 201 mg/dL (<200) H 06/11/21 06:15 HDL Cholesterol 48 mg/dL (40-60) 06/11/21 06:15 Cholesterol/HDL Ratio 4.19 06/11/21 06:15 Home Medications: Levothyroxine Sodium [Euthyrox] 25 mcg PO DAILY #30 06/11/21 Aspirin [Aspirin EC] 81 mg PO DAILY #30 tablet. 06/12/21 Atorvastatin Calcium [Lipitor] 40 mg PO BEDTIME #30 tab 06/12/21 Clopidogrel Bisulfate [Plavix*] 75 mg PO DAILY #30 tablet 06/12/21 Folic Acid 1 mg PO DAILY #30 tablet 06/12/21 Hydralazine [Apresoline*] 25 mg PO TID 30 Days #90 tab 06/13/21 carvediloL [Coreg*] 12.5 mg PO BID 30 Days #60 tab 06/13/21 New Medications: Hydralazine [Apresoline*] 25 mg PO TID 30 Days #90 tab Aspirin [Aspirin EC] 81 mg PO DAILY #30 tablet. carvediloL [Coreg*] 12.5 mg PO BID 30 Days #60 tab Levothyroxine Sodium [Euthyrox] 25 mcg PO DAILY #30 Folic Acid 1 mg PO DAILY #30 tablet Atorvastatin Calcium [Lipitor] 40 mg PO BEDTIME #30 tab Clopidogrel Bisulfate [Plavix*] 75 mg PO DAILY #30 tablet Diet: AHA Activity: Ad ron Followup: Yaima Reynolds MD [ACTIVE - CAN ADMIT] - 1 Week (Renal insufficiency) Stef Alicea MD [ACTIVE - CAN ADMIT] - Alban Meyer MD [ASSOCIATE-ACTIVE - CAN ADMIT] - 1 Week NONE,NONE [Primary Care Provider] - Time spent managing pt's care (in minutes): 45
[2021-06-17 06:20] LABS: Albumin, (SPE) 3.5 g/dL (3.8-4.8); Alpha-1-Globulins 0.3 g/dL (0.2-0.3); Alpha-2-Globulins 0.7 g/dL (0.5-0.9); Gamma Globulins 1.2 g/dL (0.8-1.7); INTERPRETATION REPORT
== END 2021-06-14 08:30 | disposition home or self-care (01) | DRG 65 ==
LOC: ER 20:37 → ERHOLD 23:21 → 2ND 06-11 08:43 → OBSVTOIN 06-11 13:14
PROVIDERS: ADMIT Internal Medicine; ATTEND Hospitalist
DX: I63.9 Cerebral infarction, unspecified (principal); I16.1 Hypertensive emergency; N17.9 Acute kidney failure, unspecified; I10 Essential (primary) hypertension; E87.6 Hypokalemia; E78.5 Hyperlipidemia, unspecified; R20.2 Paresthesia of skin; Z79.899 Other long term (current) drug therapy; R29.700 NIHSS score 0; Z79.890 Hormone replacement therapy; Z79.82 Long term (current) use of aspirin; Z79.02 Long term (current) use of antithrombotics/antiplatelets; Z20.822 Contact with and (suspected) exposure to COVID-19
CPT/HCPCS: 36415; 70450; 70551; 71045; 76770; 80048; 80053; 80061; 80069; 80076; 80307; 81001; 82088; 82533; 82570; 82728; 82947; 83540; 83735; 83835; 83935; 84100; 84132; 84156; 84165; 84244; 84300; 84439; 84443; 84466; 84484; 84703; 85025; 85610; 85730; 87086; 87088; 93005; 97161; 99285; G0378; J0360; J1650; J7030; U0003